=== PATIENT | male | born 1970 | race Caucasian/White ===

== ENCOUNTER 2021-06-19 13:45 | Emergency (ER) | payer OTHER ==
[~2021-06-19] VITALS: Ht 177.8 cm; Wt 90.4 kg
[2021-06-19] MEDS ORDERED: CONTRAST GIVEN. MC PRN (14:45)
[2021-06-19] MEDS ORDERED: IOHEXOL 300 MG/ML 75 ML VIAL. IV ONE (14:45)
--- NOTE | 2021-06-19 14:46 | PHYS DOC ---
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 Patient saw his primary care provider 3 days ago and was prescribed antacid medication, enemas, and told to draft roller picker a stool softener. Patient states that he did draft roller picker a stool softener, says is not a laxative, and has been using it this improvement. Patient states he has also felt bloated and has difficulty with bending over and discomfort with having his pants button. Patient has a history of chronic vomiting. No abdominal surgical history. Review of Systems: Review of Systems: All other systems within normal limits except for as noted in the HPI Current Medications: Current Meds: Current Medications Medications (Trade) Dose Ordered Sig/Stefanie Start Time Stop Time Status Last Admin Dose Admin Info (Do NOT chart on this entry -- for MONITORING) 1 each PRN DAILY PRN 06/19/21 14:45 06/21/21 14:44 Iohexol (Omnipaque 300 Mg/ml) 75 ml 1X ONCE 06/19/21 14:45 06/19/21 14:46 Allergies: Allergies: Allergies Coded Allergies Type Severity Reaction Last Updated Verified No Known Drug Allergies 06/19/21 No Physical Exam: PE: Constitutional: Well developed, well nourished, no acute distress, non-toxic appearance. [] HENT: Normocephalic, atraumatic, bilateral external ears normal, nose normal. [] Eyes: PERRLA, conjunctiva normal, no discharge. [] Neck: No rigidity, supple, no stridor. [] Cardiovascular: Regular rate and rhythm, brisk cap refill [] Lungs & Thorax: Non labored symmetric respirations, no tachypnea or respiratory distress [] Abdomen: Soft, nondistended, bilateral lower abdominal pain with guarding, no hepatosplenomegaly, negative Pacheco sign. Skin: Warm, dry, no erythema, no rash. [] Back: Unremarkable Extremities: No deformities, range of motion grossly intact, no lower extremity edema [] Neurologic: Alert and oriented X 3, no focal deficits noted. [] Psychologic: Affect normal, judgement normal, mood normal. [] Current Patient Data: Vital Signs: Vital Signs Date Time Temp Pulse Resp B/P (MAP) Pulse Ox O2 Delivery O2 Flow Rate FiO2 06/19/21 14:00 97.9 73 18 119/83 (95) 99 Room Air EKG: EKG: [] Radiology/Procedures: Radiology/Procedures: [address] [address] IMAGING REPORT Signed PATIENT: TR PEREIRA JACCOUNT: [id number] : 1970 LOCATION: ER AGE: 50 SEX: M EXAM STATUS: REG ER ORD. PHYSICIAN: AVTAR GARCIA MD REASON: abd pain, bloating PROCEDURE: CT ABD PELV W/ IV CONTRST ONLY EXAMINATION: CT ABDOMEN+PELVIS W CLINICAL HISTORY: Abdominal pain, bloating. TECHNIQUE: CT of the abdomen and pelvis was performed using standard technique, scanning from just above the dome of the diaphragm to the symphysis pubis following administration of intravenous contrast. CT Dose Reduction Employed: One or more of the following individualized dose reduction techniques were utilized for this examination: 1. Automated exposure control 2. Adjustment of the mA and/or kV according to patient size 3. Use of iterative reconstruction technique. COMPARISON: None FINDINGS: Visualized heart and lungs unremarkable. Small calcification in the liver near the gallbladder fossa, nonspecific but possibly related to old granulomatous disease. Gallbladder, pancreas, spleen, adrenal glands, and kidneys unremarkable. Mildly filled urinary bladder. Coarse calcification in the central prostate. Questionable wall thickening throughout much of the small bowel, suboptimally evaluated due to visceral crowding in patient with thin body habitus. This may be related to enteritis. Multiple small locules of gas just beneath the anterior abdominal wall, presumably in poorly visualized loops of small bowel. Likely also free air considered less likely but not entirely excluded, particularly in the right lower quadrant. Mild stool throughout the colon. Partially visualized appendix appears normal. No abdominal aortic aneurysm. 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 No evidence of acute osseous abnormality. L4-5 degenerative disc disease. IMPRESSION: Findings suspicious for enteritis as described, correlate clinically. Electronically signed by: Fazal Campbell DO (06/19/2021 3:20 PM) [facility] DICTATED AND SIGNED BY: FAZAL CAMPBELL DO DATE: 06/19/21 1505 CC: AVTAR GARCIA MD; GEMMA CHOWDHURY MD ~ [] Heart Score: C/O Chest Pain: No Risk Factors: Risk Factors: DM, Current or recent (<one month) smoker, HTN, HLP, family history of CAD, obesity. Risk Scores: Score 0 - 3: 2.5% MACE over next 6 weeks - Discharge Home Score 4 - 6: 20.3% MACE over next 6 weeks - Admit for Clinical Observation Score 7 - 10: 72.7% MACE over next 6 weeks - Early Invasive Strategies Course & Med Decision Making: Course & Med Decision Making Pertinent Labs and Imaging studies reviewed. (See chart for details) [] Dragon Disclaimer: Dragon Disclaimer: This electronic medical record was generated, in whole or in part, using a voice recognition dictation system. Departure Departure: Impression: Primary Impression: Abdominal pain Additional Impression: Enteritis Disposition: HOME / SELF CARE / HOMELESS Condition: STABLE Referrals: GEMMA CHOWDHURY MD (PCP) Patient Instructions: Abdominal Pain Scripts Hydrocortisone (ANUSOL-HC) 30 Gm Cream..g. 1 SHREE TP TID for hemorroids for 10 Days, #30 GM 0 Refills Prov: AVTAR GARCIA MD 06/19/21 Magnesium Citrate (MAGNESIUM CITRATE) 296 Ml Solution 296 ML PO ONCE for constipation, #296 ML Prov: AVTAR GARCIA MD 06/19/21 AVTAR GARCIA MD Jun 19, 2021 14:46
[2021-06-19 15:04] LABS: BASO % 1 % (0-3); EOS # 0.1 x10^3/uL (0.0-0.7); EOS % 1 % (0-3); HEMATOCRIT 46.8 % (39.0-53.0); HEMOGLOBIN 15.6 g/dL (13.0-17.5); LYMPH % 27 % (24-48); MEAN CORPUSCULAR HEMOGLOBIN 31 pg (25-35); MEAN CORPUSCULAR HGB CONC 33 g/dL (31-37); MEAN CORPUSCULAR VOLUME 91 fL (79-100); MONO # 0.7 x10^3/uL (0.0-1.1); MONO % 10 % (0-9); NEUT # 4.5 x10^3uL (1.8-7.7); NEUT % 61 % (31-73); PLATELET COUNT 287 x10^3/uL (140-400); RED BLOOD COUNT 5.13 x10^6/uL (4.30-5.70); RED CELL DISTRIBUTION WIDTH 13.3 % (11.5-14.5); WHITE BLOOD COUNT 7.4 x10^3/uL (4.0-11.0)
[2021-06-19 15:10] LABS: ANION GAP 1 (6-14); BLOOD UREA NITROGEN 23 mg/dL (8-26); BUN/CREATININE RATIO 23 (6-20); CALCIUM 8.9 mg/dL (8.5-10.1); CARBON DIOXIDE 32 mmol/L (21-32); CHLORIDE 101 mmol/L (98-107); GFR 79.8; GLUCOSE 76 mg/dL (70-99); SODIUM 134 mmol/L (136-145)
[2021-06-19 15:16] LABS: ALBUMIN 3.9 g/dL (3.4-5.0); ALBUMIN/GLOBULIN RATIO 1.2 (1.0-1.7); ALK PHOS 90 U/L (46-116); ALT (SGPT) 100 U/L (16-63); AST (SGOT) 62 U/L (15-37); LIPASE 98 U/L (73-393); MAGNESIUM 2.1 mg/dL (1.8-2.4); PHOSPHORUS 3.1 mg/dL (2.6-4.7); TOTAL BILIRUBIN 0.6 mg/dL (0.2-1.0); TOTAL PROTEIN 7.1 g/dL (6.4-8.2)
[2021-06-19 15:17] LABS: C REACTIVE PROTEIN < 0.5 mg/L (0-3.3)
--- NOTE | 2021-06-19 15:22 | RAD ---
EXAMINATION: CT ABDOMEN+PELVIS W CLINICAL HISTORY: Abdominal pain, bloating. TECHNIQUE: CT of the abdomen and pelvis was performed using standard technique, scanning from just ab ove the dome of the diaphragm to the symphysis pubis following administration of intravenous contrast . CT Dose Reduction Employed: One or more of the following individualized dose reduction techniques wer e utilized for this examination: 1. Automated exposure control 2. Adjustment of the mA and/or kV ac cording to patient size 3. Use of iterative reconstruction technique. COMPARISON: None FINDINGS: Visualized heart and lungs unremarkable. Small calcification in the liver near the gallbladder fossa, nonspecific but possibly related to old granulomatous disease. Gallbladder, pancreas, spleen, adrenal glands, and kidneys unremarkable. Mildly filled urinary bladder. Coarse calcification in the central prostate. Questionable wall thickening throughout much of the small bowel, suboptimally evaluated due to viscer al crowding in patient with thin body habitus. This may be related to enteritis. Multiple small locul es of gas just beneath the anterior abdominal wall, presumably in poorly visualized loops of small syeda wel. Likely also free air considered less likely but not entirely excluded, particularly in the right lower quadrant. Mild stool throughout the colon. Partially visualized appendix appears normal. No abdominal aortic aneurysm. 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 No evidence of acute osseous abnormality. L4-5 degenerative disc disease. IMPRESSION: Findings suspicious for enteritis as described, correlate clinically. Electronically signed by: Fazal Rizzo DO (06/19/2021 3:20 PM) [facility]
[2021-06-19] MEDS ORDERED: MAGN296S68 PO (16:13)
[2021-06-19] MEDS ORDERED: HYDR30CR61 TP (16:13)
[2021-06-19 16:30] VITALS: BP 118/99
== END 2021-06-19 16:35 | disposition home or self-care (01) ==
LOC: ER 14:00
DX: K52.9 Noninfective gastroenteritis and colitis, unspecified (principal)
CPT/HCPCS: 36415; 74177; 80053; 83690; 83735; 84100; 85025; 86140; 99285; Q9967